=== PATIENT | female | born 2000 | race Caucasian/White ===

== ENCOUNTER 2025-04-20 13:08 | Emergency (ER) | payer OTHER ==
[~2025-04-20] VITALS: Ht 157.5 cm; Wt 85.0 kg
[2025-04-20 13:14] VITALS: TEMP 36.6; O2SAT 98
[2025-04-20] MEDS: KETOROLAC 30MG/ML VIAL IM ONE (14:28)
[2025-04-20] MEDS ORDERED: NAPR-679 MT (16:27)
[2025-04-20 16:51] VITALS: BP 114/69; PULSE 81; RESP 16; O2SAT 100
== END 2025-04-20 16:52 | disposition home or self-care (01) ==
LOC: ER 13:08
DX: M25.572 Pain in left ankle and joints of left foot (principal); Z79.1 Long term (current) use of non-steroidal anti-inflammatories (NSAID); W10.9XXA Fall (on) (from) unspecified stairs and steps, initial encounter; Y93.89 Activity, other specified; Y92.89 Other specified places as the place of occurrence of the external cause; Y99.8 Other external cause status
CPT/HCPCS: 99283; 81025; 73610; 96372; J1885